=== PATIENT | male | born 1965 | race Caucasian/White ===

== ENCOUNTER 2021-02-11 12:15 | Emergency (ER) | payer OTHER ==
[2021-02-11] MEDS ORDERED: NORFLEX 100 MG100 MG PO (15:22)
[2021-02-11] MEDS ORDERED: NAPROXEN500 MG PO (15:22)
== END 2021-02-11 15:35 | disposition home or self-care (01) ==
LOC: ER1 12:15
DX: S30.0XXA Contusion of lower back and pelvis, initial encounter (principal); E11.9 Type 2 diabetes mellitus without complications; E78.5 Hyperlipidemia, unspecified; Z79.84 Long term (current) use of oral hypoglycemic drugs; Z79.899 Other long term (current) drug therapy; W22.8XXA Striking against or struck by other objects, initial encounter; Y92.89 Other specified places as the place of occurrence of the external cause; Y99.0 Civilian activity done for income or pay
CPT/HCPCS: 72131; 81001; 99283